=== PATIENT | male | born 1970 | race Caucasian/White ===

== ENCOUNTER 2022-10-12 11:02 | Emergency (ER) | payer SELFPAY ==
[2022-10-12 11:08] VITALS: BP 139/84; PULSE 78; RESP 18; TEMP 97.8; BMI 29.2
[2022-10-12] MEDS ORDERED: DIPHTH,PERTUSS(ACELL),TET 0.5 ML DISP.SYRIN IM ONE ×2 (11:56→12:35)
[2022-10-12] MEDS ORDERED: IBUPROFEN 600 MG TABLET (FP) PO ONE ×2 (11:56→12:35)
[2022-10-12] MEDS ORDERED: ERYTHROMYCIN 0.5% OPHTHALMIC OINTMENT 3.5 GM TUBE OD ONE (12:15)
[2022-10-12] MEDS ORDERED: ERYTHROMYCIN 0.5% OPHTHALMIC OINTMENT 3.5 GM TUBE ONE (12:35)
[2022-10-13] MEDS ORDERED: ERYTHROMYCIN 0.5% OPHTHALMIC OINTMENT 3.5 GM TUBE OD ONE (12:15)
== END 2022-10-12 12:49 | disposition home or self-care (01) ==
LOC: JERFT 11:02
PROC: 3E0234Z Introduction of Serum, Toxoid and Vaccine into Muscle, Percutaneous Approach (ICD-10-PCS; principal; 2022-10-12)
DX: S05.01XA Injury of conjunctiva and corneal abrasion without foreign body, right eye, initial encounter (principal); W22.8XXA Striking against or struck by other objects, initial encounter
CPT/HCPCS: 90715; 99284-25